=== PATIENT | female | born 1930 | race Caucasian/White ===

== ENCOUNTER 2016-07-24 17:05 | Emergency (ER) | payer MEDICARE ==
[~2016-07-24] VITALS: Ht 149.9 cm; Wt 62.0 kg
[~2016-07-24 17:05] MED LIST: ADVA100A INH; ALBU.5I INH; ALBU8I INH; ALLO300 PO; ASPI81TA82 PO; BRIM0.2S EACH EYE; CARD120T4 PO; CHOLTAB6 PO; CLON.1 PO; FLON0.053; IPRA0.02 INH; LORTA5 PO; METO50TA PO; OMEG12002 PO; PRIN5TAB PO; RIVA10 PO; TRAV0.00 BOTH EYES; VITA10002 PO
[2016-07-24 17:15] VITALS: O2SAT 94
[2016-07-24 17:25] VITALS: BP 153/85; PULSE 93; RESP 24; TEMP 97.7; O2SAT 95
--- NOTE | 2016-07-24 17:27 | PD ---
HPI Chief Complaint: shortness of breath Time Seen by Provider: 17:23 Travel History International Travel<30 days: No Contact w/Intl Traveler<30days: No Traveled to known affect area: No History of Present Illness HPI 86-year-old female came to the emergency room brought by EMS with history of shortness of breath. The tinsmith helper called 911 since patient has been experiencing some chest tightness today. Her primary care office was called and they asked her to bring to the emergency room. Her daughter is here was giving additional history. As per the daughter patient has had shortness of breath for the past week but this morning she woke up saying that her chest was feeling tight. Patient has history of COPD and atrial fibrillation. She does not require oxygen at home. Patient is awake and does not appear to be in severe distress. She is hard of hearing however. Vital signs were within acceptable limit. PFSH Past Medical History Narrative Medical List of her past medical, surgical, social and family history was reviewed from the nursing note. Hx Anticoagulant Therapy: Yes (81 MG ASPIRIN, DAILY) Arthritis: Yes Asthma: No Atrial Fibrillation: Yes Autoimmune Disease: No Anxiety: Yes Depression: Yes Heart Rhythm Problems: Yes (AFIB) Cancer: No Cardiovascular Problems: Yes (HTN, A-FIB) High Cholesterol: No Chest Pain: No Congestive Heart Failure: No COPD: Yes Diabetes: No Diminished Hearing: Yes ([place]; HEARING AID LEFT AID, RIGHT EAR DEAF) Endocrine: No Gastrointestinal Disorders: No Glaucoma: Yes (BILATERAL) Genitourinary: Yes (NEPHROLITHIASIS) Hepatitis: No Hiatal Hernia: No Hypertension: Yes Immune Disorder: No Kidney Stones: Yes Musculoskeletal: No Neurologic: No Psychiatric: Yes (ANXIETY,DEPRESSION,FORGETFULNESS) Reproductive: No Respiratory: Yes (HX RIGHT CHEST SPONTANEOUS PNEUMOTHORAX) Immunizations Current: No Sleep Apnea: No Thyroid Disease: No Menopausal: Yes : 11 Para: 2 Miscarriage: 9 Past Surgical History Abdominal Surgery: No AICD: No Appendectomy: No Arteriovenous Shunt: No Cardiac Surgery: No Cholecystectomy: No Ear Surgery: No Endocrine Surgery: No Eye Surgery: No Genitourinary Surgery: Yes (CYSTOSCOPY) Gynecologic Surgery: No Hysterectomy: No Insulin Pump: No Joint Replacement: No Oral Surgery: No Pacemaker: No Thoracic Surgery: No Tonsillectomy: Yes Other Surgery: Yes (LEFT BREAST BIOPSY) Social History Alcohol Use: Yes (2 COCKTAILS BEFORE DINNER EACH DAY) Tobacco Use: No (QUIT IN 1983) Substance Use: No Allergies-Medications (Allergen,Severity, Reaction): Coded Allergies: Bactrim (Verified Allergy, Severe, UNKNOWN, 07/24/16) Percocet (Verified Allergy, Intermediate, hypotension, 07/24/16) Cipro (Verified Allergy, Mild, ALMOST PASSED OUT, 07/24/16) Levaquin (Verified Allergy, Mild, ALMOST PASSED OUT, 07/24/16) Doxycycline (Verified Adverse Reaction, Severe, Nausea/Vomiting, 07/24/16) Comments List of her allergies reviewed from the nursing note. Reported Meds & Prescriptions Reported Meds & Active Scripts Active Macrobid (Nitrofurantoin Monoh/Nitrofur Macro) 100 Mg Cap 100 Mg PO BID 7 Days Prednisone 20 Mg Tab 20 Mg PO BID 5 Days Reported Aricept (Donepezil) 5 Mg Tab 5 Mg PO HS Macrobid (Nitrofurantoin Monoh/Nitrofur Macro) 100 Mg Cap 100 Mg PO HS K-Tab (Potassium Chloride) 10 Meq Tab 10 Meq PO DAILY Lasix (Furosemide) 20 Mg Tab 20 Mg PO DAILY Namenda (Memantine) 5 Mg Tab 5 Mg PO DAILY Brimonidine Opth Drops (Brimonidine Tartrate) 0.2% Soln 1 Drop EACH EYE BID Metoprolol Tartrate 50 Mg Tab 50 Mg PO BID Ipratropium Neb (Ipratropium [place]) 0.5 Mg/2.5 Ml Amp 0.5 Mg NEB Q6HR NEB Advair Diskus Inh (Fluticasone-Salmeterol Inh) 100-50 Mcg/Blist Aer 1 Puff INH BID Rinse mouth after use. Flonase Nasal [place] (Fluticasone Nasal [place]) 50 Mcg/Act [place] 50 Mcg EACH NARE DAILY Diltiazem (Diltiazem HCl) 120 Mg Tab 120 Mg PO DAILY Aspirin EC (Aspirin) 81 Mg Tabdr 81 Mg PO DAILY Allopurinol 300 Mg Tab 300 Mg PO DAILY Albuterol Neb (Albuterol Sulfate) 2.5 Mg/0.5 Ml Neb 2.5 Mg NEB Q6HR NEB Note: The Albuterol Sulfate Inhalation Solution is concentrated and must be diluted. Read complete instructions carefully before using. Proair Hfa 8.5 GM Inh (Albuterol Sulfate) 90 Mcg/Act Aer 2 Puff INH Q4-6H PRN 108 mcg/actuation Narrative Medication List of her home medications reviewed from the nursing note. Review of Systems Except as stated in HPI: all other systems reviewed are Neg Physical Exam Narrative GENERAL: Awake, alert, elderly, mild distress SKIN: Focused skin assessment warm/dry. Hyperpigmented skin HEAD: Atraumatic. Normocephalic. EYES: Pupils equal and round. No scleral icterus. No injection or drainage. ENT: No nasal bleeding or discharge. Mucous membranes pink and moist. NECK: Trachea midline. No JVD. CARDIOVASCULAR: Irregularly irregular rate and rhythm. No murmur appreciated. RESPIRATORY: No accessory muscle use. Prolonged expiration with end expiratory wheeze GASTROINTESTINAL: Abdomen soft, non-tender, nondistended. Hepatic and splenic margins not palpable. MUSCULOSKELETAL: No obvious deformities. No clubbing. No cyanosis. 1+ bilateral pedal edema. NEUROLOGICAL: Awake and alert. No obvious cranial nerve deficits. Motor grossly within normal limits. Normal speech. PSYCHIATRIC: Appropriate mood and affect; insight and judgment normal. Data Data Last Documented VS Vital Signs Date Time Temp Pulse Resp B/P Pulse Ox O2 Delivery O2 Flow Rate FiO2 07/24/16 18:48 97.7 87 22 151/89 97 Room Air Orders Complete Blood Count With Diff (07/24/16 17:37) Basic Metabolic Panel (Bmp) (07/24/16 17:37) B-Type Natriuretic Peptide (07/24/16 17:37) Prothrombin Time / Inr (Pt) (07/24/16 17:37) Magnesium (Mg) (07/24/16 17:37) Ckmb (Isoenzyme) Profile (07/24/16 17:37) Troponin I (07/24/16 17:37) Urinalysis - C+S If Indicated (07/24/16 17:37) Blood Culture (07/24/16 17:37) Iv Access Insert/Monitor (07/24/16 17:37) Ecg Monitoring (07/24/16 17:37) Oximetry (07/24/16 17:37) Oxygen Administration (07/24/16 17:37) Chest, Single Ap (07/24/16 17:37) Sodium Chloride 0.9% Flush (Ns Flush) (07/24/16 17:45) Furosemide Inj (Lasix Inj) (07/24/16 17:45) Methylprednisolone So Succ Inj (Solumedr (07/24/16 17:45) Albuterol-Ipratropium Neb (Duoneb Neb) (07/24/16 17:45) CKMB (07/24/16 17:15) CKMB% (07/24/16 17:15) Urine Culture (07/24/16 18:22) Nitrofurantoin Monohyd Macrocr (Macrobid (07/24/16 19:00) Electrocardiogram (07/24/16 17:20) Labs Laboratory Tests Test 07/24/16 07/24/16 17:15 18:22 White Blood Count 7.5 TH/MM3 Red Blood Count 4.45 MIL/MM3 Hemoglobin 14.7 GM/DL Hematocrit 43.5 % Mean Corpuscular Volume 97.6 FL Mean Corpuscular Hemoglobin 33.0 PG Mean Corpuscular Hemoglobin 33.8 % Concent Red Cell Distribution Width 14.8 % Platelet Count 221 TH/MM3 Mean Platelet Volume 8.5 FL Neutrophils (%) (Auto) 61.1 % Lymphocytes (%) (Auto) 24.6 % Monocytes (%) (Auto) 8.0 % Eosinophils (%) (Auto) 6.0 % Basophils (%) (Auto) 0.3 % Neutrophils # (Auto) 4.5 TH/MM3 Lymphocytes # (Auto) 1.9 TH/MM3 Monocytes # (Auto) 0.6 TH/MM3 Eosinophils # (Auto) 0.5 TH/MM3 Basophils # (Auto) 0.0 TH/MM3 CBC Comment DIFF FINAL Differential Comment Prothrombin Time 10.6 SEC Prothromb Time International 1.0 RATIO Ratio Sodium Level 141 MEQ/L Potassium Level 4.1 MEQ/L Chloride Level 104 MEQ/L Carbon Dioxide Level 29.2 MEQ/L Anion Gap 8 MEQ/L Blood Urea Nitrogen 22 MG/DL Creatinine 0.89 MG/DL Estimat Glomerular Filtration 60 ML/MIN Rate Random Glucose 88 MG/DL Calcium Level 9.0 MG/DL Magnesium Level 2.0 MG/DL Total Creatine Kinase 137 U/L Creatine Kinase MB 6.3 NG/ML Troponin I LESS THAN 0.02 NG/ML B-Type Natriuretic Peptide 172 PG/ML Urine Color YELLOW Urine Turbidity CLEAR Urine pH 6.5 Urine Specific [place] 1.010 Urine Protein NEG mg/dL Urine Glucose (UA) NEG mg/dL Urine Ketones NEG mg/dL Urine Occult Blood NEG Urine Nitrite NEG Urine Bilirubin NEG Urine Leukocyte Esterase NEG Urine RBC 0-2 /hpf Urine WBC 3-5 /hpf Urine Squamous Epithelial 0-5 /hpf Cells Urine Bacteria MOD /hpf Microscopic Urinalysis Comment CULTURE INDICATED MDM Medical Decision Making Medical Screen Exam Complete: Yes Emergency Medical Condition: Yes Medical Record Reviewed: Yes Interpretation(s) Twelve-lead EKG was reviewed by me. Atrial fibrillation, normal axis, questionable old anterior [place]. Heart rate of 87 bpm. Differential Diagnosis COPD exacerbation, CHF, pneumonia Narrative Course 6:48 PM patient was given 2 DuoNeb treatments and IV Solu-Medrol. She she was also initially given IV Lasix not knowing whether there could be any congestive heart failure component to her shortness of breath. However blood test results of back and her BNP and troponin has been negative. Patient has had these symptoms since the morning and given the normal cardiac enzymes and chest x-ray not suggestive of fluid overload I am comfortable discharging her home. She is maintaining oxygen saturation at 96-97% on room air. Daughter is comfortable taking her home. They will go home with instructions. Procedures EKG Prior to Arrival: No Diagnosis Primary Impression: COPD exacerbation Additional Impressions: Shortness of breath UTI (urinary tract infection) Qualified Code: N39.0 - Urinary tract infection without hematuria, site unspecified Referrals: Trenton Rajan MD 1 day Additional Instructions: Please follow-up with your bread icer and primary care doctor. With your bread icer tomorrow. Use your inhaler 2 puffs every 6 hours till your been seen again. Take the medication as per the prescription direction. Return to the ER if condition worsens or any other new concerns. Med/Other Pt SpecificInfo: Prescription(s) given Scripts Nitrofurantoin Monohydrate Macrocrystals (Macrobid)100 Mg [id number] Mg PO BID 7 Days Ref 0 Prov:Albina Saleh MD 07/24/16 Prednisone 20 Mg Tab20 Mg PO BID 5 Days Ref 0 Prov:Albina Saleh MD 07/24/16 Disposition: 01 DISCHARGE HOME Condition: Stable Albina Saleh MD July 24, 2016 17:27
[2016-07-24] MEDS ORDERED: NAME5TAB2 PO (17:43)
[2016-07-24] MEDS ORDERED: DILT120T PO (17:43)
[2016-07-24] MEDS ORDERED: ALBUAER3 INH (17:43)
[2016-07-24] MEDS ORDERED: BRIM0.2S4 EACH EYE (17:43)
[2016-07-24] MEDS ORDERED: ALBU.5I NEB (17:43)
[2016-07-24] MEDS ORDERED: MACR100C2 PO ×2 (17:43→18:58)
[2016-07-24] MEDS ORDERED: ASPI81TA11 PO (17:43)
[2016-07-24] MEDS ORDERED: ADVA100A INH (17:43)
[2016-07-24] MEDS ORDERED: IPRA0.02 NEB (17:43)
[2016-07-24] MEDS ORDERED: ALLO300T2 PO (17:43)
[2016-07-24] MEDS ORDERED: K-TA10TA PO (17:43)
[2016-07-24] MEDS ORDERED: METO50TA PO (17:43)
[2016-07-24] MEDS ORDERED: FLUT1SPR5 EACH NARE (17:43)
[2016-07-24] MEDS ORDERED: FURO1TAB62 PO (17:43)
[2016-07-24] MEDS ORDERED: SODIUM CHLORIDE 0.9% FLUSH 10 ML FLUSH IVF PRN (17:45)
[2016-07-24] MEDS ORDERED: methylPREDNISolone SOD SUCC 125 MG/2 ML VIAL IVP ONE (17:45)
[2016-07-24] MEDS ORDERED: FUROSEMIDE 40 MG/4 ML VIAL IVP ONE (17:45)
[2016-07-24] MEDS: RESP: ALBUTEROL 2.5 MG/IPRATROPIUM 0.5 MG NEB (SCH) INH ×2 (17:53→17:54)
[2016-07-24 18:01] LABS: AUTOMATED NEUTROPHIL # 4.5 TH/MM3 (1.8-7.7); BASOPHIL % 0.3 % (0.0-2.0); EOSINOPHIL # 0.5 TH/MM3 (0-0.4); HEMATOCRIT 43.5 % (35.0-46.0); HEMO FLAGS DIFF FINAL; LYMPH % 24.6 % (9.0-44.0); LYMPHOCYTE # 1.9 TH/MM3 (1.0-4.8); MEAN CELL VOLUME 97.6 FL (80.0-100.0); MEAN CORPUSCULAR HGB CONC 33.8 % (32.0-36.0); NEUT % 61.1 % (16.0-70.0); PLATELET COUNT 221 TH/MM3 (150-450); RED BLOOD COUNT 4.45 MIL/MM3 (4.00-5.30); RED CELL DISTRIBUTION WIDTH 14.8 % (11.6-17.2); WHITE BLOOD COUNT 7.5 TH/MM3 (4.0-11.0)
[2016-07-24 18:09] LABS: CHLORIDE 104 MEQ/L (98-107); POTASSIUM 4.1 MEQ/L (3.5-5.1); SODIUM (NA) 141 MEQ/L (136-145)
[2016-07-24 18:12] LABS: ANION GAP 8 MEQ/L (5-15); BICARBONATE 29.2 MEQ/L (21.0-32.0)
[2016-07-24 18:13] LABS: BLOOD UREA NITROGEN 22 MG/DL (7-18)
[2016-07-24 18:16] LABS: GLOMERULAR FILTRATION RATE 60 ML/MIN (>89)
[2016-07-24 18:19] LABS: CREATINE KINASE 137 U/L (26-192)
[2016-07-24 18:29] VITALS: BP 162/83; PULSE 92; RESP 22; O2SAT 96
[2016-07-24 18:29] LABS: PROTHROMBIN TIME - PATIENT 10.6 SEC (9.8-11.6)
[2016-07-24 18:29] LABS: BLOOD, URINE NEG (NEG); GLUCOSE,URINE NEG (NEG); KETONE, URINE NEG (NEG); NITRITE,URINE NEG (NEG); PH, URINE 6.5 (5.0-8.5)
--- NOTE | 2016-07-24 18:30 | RADHPO ---
EXAM DATE/TIME: 07/24/2016 18:12 [facility] COMPARISON: CHEST SINGLE AP, June 13, 2015, 23:31. INDICATIONS : Patient has been short of breath since Thursday. Today her complaint is chest tightne ss. MEDICAL HISTORY : None. SURGICAL HISTORY : None. ENCOUNTER: Initial ACUITY: 1 week PAIN SCORE: 0/10 LOCATION: Bilateral chest FINDINGS: Minimal bibasilar parenchymal changes are noted worse on the right than the left. Heart and pulmonary vascularity are normal. Portions of the bony skeleton visualized are unremarkable. CONCLUSION: Minimal bibasilar parenchymal changes. Vincenzo Jaeger MD FACR on July 24, 2016 at 18:22 Board Certified Radiologist. This report was verified electronically.
[2016-07-24 18:31] LABS: CKMB 6.3 NG/ML (0.5-3.6)
[2016-07-24 18:35] LABS: URINE COLOR YELLOW (YELLW/STRAW)
[2016-07-24 18:36] LABS: BACTERIA, URINE MOD /hpf; COMMENT (UR) CULTURE INDICATED; CULTURE IF INDICATED CULTURE INDICATED; RBC, URINE 0-2 /hpf (0-3); SQUAMOUS EPITHELIAL CELL URINE 0-5 /hpf (0-5)
[2016-07-24] MEDS ORDERED: ARIC5TAB PO (18:36)
[2016-07-24 18:48] VITALS: BP 151/89; PULSE 87; RESP 22; TEMP 97.7; O2SAT 97
[2016-07-24] MEDS ORDERED: PRED20 PO (18:50)
[2016-07-24] MEDS ORDERED: NITROFURANTOIN MONOHYD MACROCR 100 MG CAP PO ONE (19:00)
--- NOTE | 2016-07-25 21:39 | EKG ---
Date Performed: 07/24/2016 Time Performed: 17:20:26 PTAGE: 86 years EKG: Atrial flutter with 3:1 A-V block Possible anteroseptal infarct - age undetermined Low QRS voltages in limb leads Abnormal ECG PREVIOUS TRACING : 06/15/2015 08.49 Compared to the previous tracing Ventricular response to AF LUTTER is controlled DOCTOR: Trent Arriaga Interpretating Date/Time 07/25/2016 21:39:20
== END 2016-07-24 19:15 | disposition home or self-care (01) ==
LOC: PHED 17:05
DX: J44.1 Chronic obstructive pulmonary disease with (acute) exacerbation (principal); N39.0 Urinary tract infection, site not specified; B96.89 Other specified bacterial agents as the cause of diseases classified elsewhere; R94.31 Abnormal electrocardiogram [ECG] [EKG]; I48.91 Unspecified atrial fibrillation; I10 Essential (primary) hypertension
CPT/HCPCS: 71010; 80048; 81001; 82550; 82552; 83735; 83880; 84484; 85025; 85610; 87040; 87086; 93005; 94640; 94664; 96374; 96375; 99285; J1940; J2930

== ENCOUNTER 2017-03-18 14:34 | Emergency (ER) | payer MEDICARE ==
[~2017-03-18 14:34] MED LIST changes: -ALBU.5I INH; +ALBU.5I NEB; -ALBU8I INH; +ALBUAER3 INH; -ALLO300 PO; +ALLO300T2 PO; +ARIC5TAB PO; +ASPI81TA23 PO; -ASPI81TA82 PO; -BRIM0.2S EACH EYE; +BRIM0.2S4 EACH EYE; -CARD120T4 PO; -CHOLTAB6 PO; -CLON.1 PO; +DILT120T PO; -FLON0.053; +FLUT1SPR5 EACH NARE; +FURO1TAB62 PO; -IPRA0.02 INH; +IPRA0.02 NEB; +K-TA10TA PO; -LORTA5 PO; +MACR100C2 PO; +NAME5TAB2 PO; -OMEG12002 PO; +PRED20 PO; -PRIN5TAB PO; -RIVA10 PO; -TRAV0.00 BOTH EYES; -VITA10002 PO
[2017-03-18 15:42] VITALS: BP 165/91; PULSE 93; RESP 22; TEMP 98; O2SAT 94
[2017-03-18 15:47] VITALS: O2SAT 94
[2017-03-18] MEDS ORDERED: SODIUM CHLORIDE 0.9% FLUSH 10 ML FLUSH IVF PRN (16:00)
--- NOTE | 2017-03-18 16:05 | PD ---
HPI Chief Complaint: Chest Pain Time Seen by Provider: 15:39 Travel History International Travel<30 days: No Contact w/Intl Traveler<30days: No Traveled to known affect area: No History of Present Illness HPI This patient complains of chest pain. She had central sternal pain she describes as a aching and a heaviness. It is resolved at this point. No alleviating factors. No exacerbating factors. It was nonexertional. Duration was 4 hours. Started at 10 AM and resolved around 2 PM. She has history of atrial fibrillation and takes aspirin therapy only. No history of stenting or coronary blockage. No recent stress testing. PFSH Past Medical History Hx Anticoagulant Therapy: Yes (81 MG ASPIRIN, DAILY) Arthritis: Yes Asthma: No Atrial Fibrillation: Yes Autoimmune Disease: No Anxiety: Yes Depression: Yes Heart Rhythm Problems: Yes (AFIB) Cancer: No Cardiovascular Problems: Yes High Cholesterol: No Chest Pain: No Congestive Heart Failure: No COPD: Yes Diabetes: No Diminished Hearing: Yes ([place]; HEARING AID LEFT AID, RIGHT EAR DEAF) Endocrine: No Gastrointestinal Disorders: No Glaucoma: Yes (BILATERAL) Genitourinary: Yes (NEPHROLITHIASIS) Hepatitis: No Hiatal Hernia: No Hypertension: Yes Immune Disorder: No Kidney Stones: Yes Musculoskeletal: No Neurologic: No Psychiatric: Yes (ANXIETY,DEPRESSION,FORGETFULNESS) Reproductive: No Respiratory: Yes (HX RIGHT CHEST SPONTANEOUS PNEUMOTHORAX) Immunizations Current: Yes Sleep Apnea: No Thyroid Disease: No Menopausal: Yes : 11 Para: 2 Miscarriage: 9 Past Surgical History Abdominal Surgery: No AICD: No Appendectomy: No Arteriovenous Shunt: No Cardiac Surgery: No Cholecystectomy: No Ear Surgery: No Endocrine Surgery: No Eye Surgery: No Genitourinary Surgery: Yes (CYSTOSCOPY) Gynecologic Surgery: No Hysterectomy: No Insulin Pump: No Joint Replacement: No Oral Surgery: No Pacemaker: No Thoracic Surgery: No Tonsillectomy: Yes Other Surgery: Yes (LEFT BREAST BIOPSY) Social History Alcohol Use: Yes (2 COCKTAILS BEFORE DINNER EACH DAY) Tobacco Use: No (QUIT IN 1983) Substance Use: No Allergies-Medications (Allergen,Severity, Reaction): Coded Allergies: sulfamethoxazole (Unverified Allergy, Severe, UNKNOWN, 10/21/16) trimethoprim (Unverified Allergy, Severe, UNKNOWN, 10/21/16) acetaminophen (Unverified Allergy, Intermediate, hypotension, 10/21/16) oxycodone (Unverified Allergy, Intermediate, hypotension, 10/21/16) ciprofloxacin (Unverified Allergy, Mild, ALMOST PASSED OUT, 10/21/16) levofloxacin (Unverified Allergy, Mild, ALMOST PASSED OUT, 10/21/16) doxycycline (Unverified Adverse Reaction, Severe, Nausea/Vomiting, 10/21/16 ) Reported Meds & Prescriptions Reported Meds & Active Scripts Active Reported Meloxicam 7.5 Mg Tab 7.5 Mg PO DAILY Ipratropium Neb (Ipratropium [place]) 0.5 Mg/2.5 Ml Amp 0.5 Mg NEB Q12HR NEB Ventolin Hfa 18 GM Inh (Albuterol Sulfate) 90 Mcg/Act Aer 2 Puff INH Q4-6H PRN Donepezil 10 Mg Tab 10 Mg PO HS Mirtazapine 15 Mg Tab 15 Mg PO HS [place] Xt (Diltiazem ER 24 HR) 120 Mg Caper 180 Mg PO DAILY Macrobid (Nitrofurantoin Monoh/Nitrofur Macro) 100 Mg Cap 100 Mg PO HS K-Tab (Potassium Chloride) 10 Meq Tab 10 Meq PO DAILY Lasix (Furosemide) 20 Mg Tab 20 Mg PO DAILY Namenda (Memantine) 5 Mg Tab 5 Mg PO DAILY Metoprolol Tartrate 50 Mg Tab 50 Mg PO DAILY Aspirin EC (Aspirin) 81 Mg Tabdr 81 Mg PO DAILY Allopurinol 300 Mg Tab 300 Mg PO DAILY Albuterol Neb (Albuterol Sulfate) 2.5 Mg/0.5 Ml Neb 2.5 Mg NEB Q6HR NEB Note: The Albuterol Sulfate Inhalation Solution is concentrated and must be diluted. Read complete instructions carefully before using. Review of Systems General / Constitutional: No: Fever Eyes: No: Visual changes HENT: No: Headaches Cardiovascular: Positive: Chest Pain or Discomfort, Irregular Rhythm Respiratory: No: Shortness of Breath Gastrointestinal: No: Abdominal Pain Genitourinary: No: Dysuria Musculoskeletal: No: Pain Skin: No Rash Neurologic: No: Weakness Psychiatric: No: Depression Endocrine: No: Polydipsia Hematologic/Lymphatic: No: Easy Bruising Physical Exam Narrative GENERAL: Thin elderly well-developed patient in no apparent distress. SKIN: Focused skin assessment reveals no rash and nodules. Skin is Warm and dry. Very tanned and dark skin HEAD: Atraumatic. Normocephalic. EYES: Pupils equal and round. No scleral icterus. No injection or drainage. ENT: No nasal bleeding or discharge. Mucous membranes pink and moist. NECK: Trachea midline. No JVD. CARDIOVASCULAR: Irregularly irregular rhythm. No murmur appreciated. RESPIRATORY: No accessory muscle use. Clear to auscultation. Breath sounds equal bilaterally. GASTROINTESTINAL: Abdomen soft, non-tender, nondistended. Hepatic and splenic margins not palpable. MUSCULOSKELETAL: No obvious deformities. No clubbing. No cyanosis. No edema. NEUROLOGICAL: Awake and alert. No obvious cranial nerve deficits. Motor grossly within normal limits. Normal speech. PSYCHIATRIC: Appropriate mood and affect; insight and judgment normal. Data Data Last Documented VS Vital Signs Date Time Temp Pulse Resp B/P (MAP) Pulse Ox O2 Delivery O2 Flow Rate FiO2 03/18/17 17:55 03/18/17 17:29 97.7 90 20 94 Room Air Orders Orders Electrocardiogram (03/18/17 15:56) Basic Metabolic Panel (Bmp) (03/18/17 15:56) Ckmb (Isoenzyme) Profile (03/18/17 15:56) Complete Blood Count With Diff (03/18/17 15:56) Magnesium (Mg) (03/18/17 15:56) Prothrombin Time / Inr (Pt) (03/18/17 15:56) Act Partial Throm Time (Ptt) (03/18/17 15:56) Troponin I (03/18/17 15:56) Chest, Single Ap (03/18/17 15:56) Ecg Monitoring (03/18/17 15:56) Iv Access Insert/Monitor (03/18/17 15:56) Oximetry (03/18/17 15:56) Sodium Chloride 0.9% Flush (Ns Flush) (03/18/17 16:00) Labs Laboratory Tests Test 03/18/17 15:30 White Blood Count 8.7 TH/MM3 Red Blood Count 4.70 MIL/MM3 Hemoglobin 14.9 GM/DL Hematocrit 46.4 % Mean Corpuscular Volume 98.7 FL Mean Corpuscular Hemoglobin 31.8 PG Mean Corpuscular Hemoglobin Concent 32.2 % Red Cell Distribution Width 15.6 % Platelet Count 191 TH/MM3 Mean Platelet Volume 9.0 FL Neutrophils (%) (Auto) 73.0 % Lymphocytes (%) (Auto) 15.2 % Monocytes (%) (Auto) 8.2 % Eosinophils (%) (Auto) 1.7 % Basophils (%) (Auto) 1.9 % Neutrophils # (Auto) 6.4 TH/MM3 Lymphocytes # (Auto) 1.3 TH/MM3 Monocytes # (Auto) 0.7 TH/MM3 Eosinophils # (Auto) 0.1 TH/MM3 Basophils # (Auto) 0.2 TH/MM3 CBC Comment DIFF FINAL Differential Comment Prothrombin Time 10.4 SEC Prothromb Time International Ratio 1.0 RATIO Activated Partial Thromboplast Time 23.9 SEC Blood Urea Nitrogen 29 MG/DL Creatinine 1.20 MG/DL Random Glucose 103 MG/DL Calcium Level 8.9 MG/DL Magnesium Level 1.9 MG/DL Sodium Level 139 MEQ/L Potassium Level 4.2 MEQ/L Chloride Level 101 MEQ/L Carbon Dioxide Level 31.7 MEQ/L Anion Gap 6 MEQ/L Estimat Glomerular Filtration Rate 43 ML/MIN Total Creatine Kinase 58 U/L Troponin I LESS THAN 0.02 NG/ML MDM Medical Decision Making Medical Screen Exam Complete: Yes Emergency Medical Condition: Yes Medical Record Reviewed: Yes Differential Diagnosis Differential diagnosis includes [place], angina, pericarditis, pleurisy, GERD, anxiety. Narrative Course I have reviewed the patient's electronic medical record. IV placed I reviewed the EKG which shows A. fib I reviewed the chest x-ray which is negative Extended cardiac monitoring shows A. fib but the rate is not excessive CBC is normal Metabolic profile is normal CK is negative Troponin is negative Coagulation studies are normal She had aspirin prior to arrival Had a discussion with family members. Recommended telemetry hospitalization given her age and chest pain. Family does not want her to stay. She is demented and does not do well in the hospital. She is very confused and agitated. Evens Hawkins MD Mar 18, 2017 16:05
[2017-03-18 16:16] LABS: AUTOMATED NEUTROPHIL # 6.4 TH/MM3 (1.8-7.7); BASOPHIL # 0.2 TH/MM3 (0-0.2); BASOPHIL % 1.9 % (0.0-2.0); EOSINOPHIL # 0.1 TH/MM3 (0-0.4); EOSINOPHIL % 1.7 % (0.0-4.0); HEMATOCRIT 46.4 % (35.0-46.0); HEMOGLOBIN 14.9 GM/DL (11.6-15.3); LYMPH % 15.2 % (9.0-44.0); LYMPHOCYTE # 1.3 TH/MM3 (1.0-4.8); MEAN CELL VOLUME 98.7 FL (80.0-100.0); MEAN CORPUSCULAR HEMOGLOBIN 31.8 PG (27.0-34.0); MEAN CORPUSCULAR HGB CONC 32.2 % (32.0-36.0); MONO % 8.2 % (0.0-8.0); MONOCYTE # 0.7 TH/MM3 (0-0.9); PLATELET COUNT 191 TH/MM3 (150-450); RED CELL DISTRIBUTION WIDTH 15.6 % (11.6-17.2); WHITE BLOOD COUNT 8.7 TH/MM3 (4.0-11.0)
[2017-03-18 16:24] LABS: CHLORIDE 101 MEQ/L (98-107); SODIUM (NA) 139 MEQ/L (136-145)
[2017-03-18 16:26] LABS: BICARBONATE 31.7 MEQ/L (21.0-32.0); CALCIUM 8.9 MG/DL (8.5-10.1)
[2017-03-18 16:27] LABS: BLOOD UREA NITROGEN 29 MG/DL (7-18); GLUCOSE,RANDOM 103 MG/DL (74-106); MAGNESIUM 1.9 MG/DL (1.5-2.5)
[2017-03-18 16:28] LABS: PROTHROMBIN TIME - PATIENT 10.4 SEC (9.8-11.6)
[2017-03-18 16:30] LABS: GLOMERULAR FILTRATION RATE 43 ML/MIN (>89)
--- NOTE | 2017-03-18 16:31 | RADRPT ---
EXAM DATE/TIME: 03/18/2017 16:15 [facility] COMPARISON: CHEST SINGLE AP, July 24, 2016, 18:12. INDICATIONS : Short of breath. MEDICAL HISTORY : None. SURGICAL HISTORY : None. ENCOUNTER: Initial ACUITY: 1 day PAIN SCORE: 0/10 LOCATION: Bilateral chest FINDINGS: A single view of the chest demonstrates left basilar subsegmental atelectasis without evidence of mas s, infiltrate or effusion. The cardiomediastinal contours are unremarkable. Osseous structures are intact. CONCLUSION: Left basilar subsegmental atelectasis. Rikki Ortega MD on March 18, 2017 at 16:28 Board Certified Radiologist. This report was verified electronically.
[2017-03-18 16:35] LABS: TROPONIN I LESS THAN 0.02 NG/ML (0.02-0.05)
[2017-03-18] MEDS ORDERED: VENTAER INH (17:17)
[2017-03-18] MEDS ORDERED: MIRTA15 PO (17:17)
[2017-03-18] MEDS ORDERED: MELO7.5T27 PO (17:17)
[2017-03-18] MEDS ORDERED: CART120C PO (17:17)
[2017-03-18] MEDS ORDERED: IPRA0.02 NEB (17:17)
[2017-03-18] MEDS ORDERED: DONE10TA7 PO (17:17)
[2017-03-18 17:29] VITALS: BP 147/70; PULSE 90; RESP 20; TEMP 97.7; O2SAT 94
--- NOTE | 2017-03-19 19:10 | EKG ---
Date Performed: 03/18/2017 Time Performed: 15:15:23 PTAGE: 86 years EKG: ATRIAL FLUTTER WITH 4-1 CONDUCTION ABNORMAL RHYTHM ECG PREVIOUS TRACING : 07/24/2016 17.20 SINCE PRIOR TRACING NO SIGNIFICANT CHANGE. DOCTOR: Linda Cuenca Interpretating Date/Time 03/19/2017 19:09:49
--- NOTE | 2017-03-19 21:10 | EKG ---
Date Performed: 03/18/2017 Time Performed: 16:05:51 PTAGE: 86 years EKG: ATRIAL FLUTTER/TACHYCARDIA LOW QRS VOLTAGE IN EXTREMITY LEADS ABNORMAL RHYTHM ECG PREVIOUS TRACING : 03/18/2017 15.15 SINCE PRIOR TRACING NO SIGNIFICANT CHANGE NOTED DOCTOR: Linda Cuenca Interpretating Date/Time 03/19/2017 21:09:45
== END 2017-03-18 18:09 | disposition left against medical advice (07) ==
LOC: PHED 14:34
DX: R07.9 Chest pain, unspecified (principal); I48.91 Unspecified atrial fibrillation; I10 Essential (primary) hypertension; J44.9 Chronic obstructive pulmonary disease, unspecified; Z79.82 Long term (current) use of aspirin; Z87.891 Personal history of nicotine dependence
CPT/HCPCS: 71045; 80048; 82550; 83735; 84484; 85025; 85610; 85730; 93005

== ENCOUNTER 2017-10-16 08:12 | Observation (INO) ==
[2017-10-16] MEDS ORDERED: MethylPREDNISolone Sod Succinate Inj 125 MG/2 ML Vial IV.PUSH ONE (08:23)
--- NOTE | 2017-10-16 08:36 | ED ---
HPI General Chief Complaint: Chest Pain Stated Complaint: Chest Pain Time Seen by Provider: 10/16/17 08:23 Source: patient and family Mode of arrival: ambulatory History of Present Illness HPI narrative: Patient is an 87-year-old female with history of COPD, atrial fibrillation, hypertension, presents the emergency room with complaints of chest pain and shortness of breath. As per patient's daughter, patient has history of COPD, she is non-oxygen dependent. Patient does follow-up with Dr. Gonzalez - her mid level practitioner who recommended nebulizer treatments which patient has not been compliant with. Reports that at baseline, patient usually has right-sided chest pain with her symptoms. Daughter was concerned as this morning, patient woke up and began to have chest pain to her left chest. Patient reports that chest pain is located to her left chest, chest pain feels like a "pressure" to her chest. Patient reports shortness of breath as well as diaphoresis with her symptoms. Patient does have history of atrial fibrillation , she does follow-up with Dr. Azar in the office - daughter reports that patient is supposed to have a Watchman procedure but no one will touch her with her "bad lungs." Complete Quality Measures for STEMI Alert Patients Related Data Home Medications Medication Instructions Recorded Confirmed albuterol sulfate 1.25 mg INHALATION QID 10/16/17 10/16/17 albuterol sulfate [Ventolin HFA] 2 puff INHALATION Q4-6H PRN 10/16/17 10/16/17 allopurinol 100 mg PO DAILY 10/16/17 10/16/17 aspirin [Aspir-81] 81 mg PO DAILY 10/16/17 10/16/17 cholecalciferol (vitamin D3) 1,000 unit PO DAILY 10/16/17 10/16/17 [Vitamin D3] cranberry 1,500 mg PO DAILY 10/16/17 10/16/17 diltiazem HCl [DILT-XR] 180 mg PO DAILY 10/16/17 10/16/17 donepezil 10 mg PO DAILY 10/16/17 10/16/17 fluticasone [Flovent HFA] 1 puff INHALATION BID 10/16/17 10/16/17 furosemide 20 mg PO DAILY 10/16/17 10/16/17 lactobacillus combination no.4 3,000 mmu cells PO DAILY 10/16/17 10/16/17 [Probiotic] meloxicam 7.5 mg PO DAILY 10/16/17 10/16/17 memantine 5 mg PO DAILY 10/16/17 10/16/17 metoprolol tartrate 50 mg PO DAILY 10/16/17 10/16/17 mirtazapine 15 mg PO DAILY 10/16/17 10/16/17 nitrofurantoin macrocrystal 100 mg PO DAILY 10/16/17 10/16/17 omega 3-gbt-kde-fish oil [Fish Oil] 1 cap PO DAILY 10/16/17 10/16/17 potassium chloride [K-Tab] 10 meq PO DAILY 10/16/17 10/16/17 umeclidinium-vilanterol [Anoro 1 inh INHALATION Q24H 10/16/17 10/16/17 Ellipta] Allergies Allergy/AdvReac Type Severity Reaction Status Date / Time sulfamethoxazole Allergy Unknown Unknown Verified 10/16/17 08:27 trimethoprim Allergy Unknown Unknown Verified 10/16/17 08:27 acetaminophen AdvReac Severe Hypotension Verified 10/16/17 08:27 ciprofloxacin AdvReac Severe Syncope Verified 10/16/17 08:27 doxycycline AdvReac Severe Nausea/Vomi Verified 10/16/17 08:27 ting levofloxacin AdvReac Severe Syncope Verified 10/16/17 08:27 oxycodone AdvReac Severe Hypotension Verified 10/16/17 08:27 Review of Systems ROS: all other systems reviewed are negative [facility] Medical History Medical History Atrial fibrillation (Acute) Atrial flutter (Acute) COPD (chronic obstructive pulmonary disease) (Acute) Hypertension (Acute) Kidney stones (Acute) Surgical History Surgical History History of hip surgery (Acute) Social History Social History Smoking Status: Former smoker How Often Do You Have a Drink Containing Alcohol: 4 or more times a week Recent Travel in [facility] within the Last 8 Weeks: No Recent Out of Country Travel within the Last 8 Weeks: No Immunization History Tetanus Immunization: Unsure Hx Influenza Vaccine This Season: Yes Exam Narrative Exam Narrative: GENERAL: moderate distress SKIN: Focused skin assessment warm/dry. HEAD: Atraumatic. Normocephalic. EYES: Pupils equal and round. No scleral icterus. No injection or drainage. ENT: No nasal bleeding or discharge. Mucous membranes pink and moist. NECK: Trachea midline. No JVD. CARDIOVASCULAR: irregular rate and rhythm. No murmur appreciated. RESPIRATORY: No accessory muscle use. Decreased breath sounds with expiratory wheezing to lung bases. Breath sounds equal bilaterally. GASTROINTESTINAL: Abdomen soft, non-tender, nondistended. Hepatic and splenic margins not palpable. MUSCULOSKELETAL: No obvious deformities. No clubbing. No cyanosis. No edema. NEUROLOGICAL: Awake and alert. No obvious cranial nerve deficits. Motor grossly within normal limits. Normal speech. PSYCHIATRIC: Appropriate mood and affect; insight and judgment normal. Course Initial Documented Vital Signs Temperature 98.2 F 10/16/17 08:15 Pulse Rate 88 10/16/17 08:15 Respiratory Rate 28 H 10/16/17 08:15 Blood Pressure 154/132 H 10/16/17 08:15 Pulse Oximetry 97 10/16/17 08:15 Last Documented Vital Signs Temperature 98.2 F 10/16/17 08:15 Pulse Rate 105 H 10/16/17 10:05 Respiratory Rate 18 10/16/17 10:05 Blood Pressure 154/105 H 10/16/17 10:05 Pulse Oximetry 97 10/16/17 10:05 Medical Decision Making MDM Narrative Medical decision making narrative: During the course of the patients emergency department visit, the patients history, examination, and differential diagnosis were reviewed with the patient. The patient was placed on a quality assurance monitor chassis with oximetry and frequent blood pressure monitoring. The patient had an IV access obtained and blood work sent for analysis. The patient was initially provided a dose of aspirin 162 mg as well as sublingual nitroglycerin to see if this helps with her chest pain. Patient was also given Solu-Medrol as well as DuoNeb's as she is wheezing and is complaining of shortness of breath. I do believe that her symptoms are likely due to COPD exacerbation Patient had relief of chest pain after 1 sublingual nitroglycerin. Plan to admit for observation in the chest pain unit as her chest pain is different from her normal COPD exacerbations. Her lungs do sound clearer after the neb treatments and I do think that her symptoms are also due to COPD exacerbation. Discussed with patient need to use her neb treatments while at home. Case reviewed with Dr. Vásquez who will observe for chest pain rule out Differential Diagnosis Differential Diagnosis: COPD exacerbation, pneumonia, pneumothorax, A. fib with RVR, arrhythmia, ACS Medical Records Medical records reviewed: Yes I reviewed the patient's medical records. Lab Data Lab results reviewed: Yes I reviewed the patient's lab results. Result diagrams: 10/16/17 08:30 10/16/17 08:30 Lab Results 10/16/17 10/16/17 10/16/17 Range/Units 08:30 08:30 08:30 CBC w Diff Auto diff final WBC 10.9 (4.0-11.0) th/mm3 RBC 4.44 (4.00-5.30) mil/mm3 Hgb 15.6 H (11.6-15.3) gm/dL Hct 45.1 (35.0-46.0) % MCV 101.5 H (80.0-100.0) fL MCH 35.1 H (27.0-34.0) pg MCHC 34.6 (32.0-36.0) % RDW 15.5 (11.6-17.2) % Plt Count 207 (150-450) th/mm3 MPV 8.9 (7.0-11.0) fL Neut % (Auto) 79.4 H (16.0-70.0) % Lymph % (Auto) 12.0 (9.0-44.0) % [place] % (Auto) 7.0 (0.0-8.0) % Eos % (Auto) 1.3 (0.0-4.0) % Baso % (Auto) 0.3 (0.0-2.0) % Neut # (Auto) 8.7 H (1.8-7.7) th/mm3 Lymph # (Auto) 1.3 (1.0-4.8) th/mm3 Ventura # (Auto) 0.8 (0.0-0.9) th/mm3 Eos # (Auto) 0.1 (0.0-0.4) th/mm3 Baso # (Auto) 0.0 (0.0-0.2) th/mm3 WBC Differential . Differential Comment . PT 9.9 (9.8-11.6) sec INR 1.0 Ratio APTT 23.6 L (24.3-30.1) sec Sodium 138 (136-145) meq/L Potassium 4.0 (3.5-5.1) meq/L Chloride 101 (98-107) meq/L Carbon Dioxide 30.3 (21.0-32.0) meq/L Anion Gap 7 (5-15) meq/L BUN 21 H (7-18) mg/dL Creatinine 1.20 H (0.50-1.00) mg/dL Estimated GFR 43 L (>89) mL/min Random Glucose 88 (74-106) mg/dL Calcium 8.9 (8.5-10.1) mg/dL Magnesium 1.9 (1.5-2.5) mg/dL Total Bilirubin 0.9 (0.2-1.0) mg/dL AST 16 (15-37) U/L ALT 16 (10-53) U/L Alkaline Phosphatase 163 H (45-117) U/L Total Creatine Kinase 39 (26-192) U/L Troponin I Less than 0.02 L (0.02-0.05) ng/mL B-Natriuretic Peptide (0-100) pg/mL Total Protein 7.2 (6.4-8.2) g/dL Albumin 3.5 (3.4-5.0) g/dL Lipase 172 (73-393) U/L 10/16/17 Range/Units 08:30 CBC w Diff WBC (4.0-11.0) th/mm3 RBC (4.00-5.30) mil/mm3 Hgb (11.6-15.3) gm/dL Hct (35.0-46.0) % MCV (80.0-100.0) fL MCH (27.0-34.0) pg MCHC (32.0-36.0) % RDW (11.6-17.2) % Plt Count (150-450) th/mm3 MPV (7.0-11.0) fL Neut % (Auto) (16.0-70.0) % Lymph % (Auto) (9.0-44.0) % Ventura % (Auto) (0.0-8.0) % Eos % (Auto) (0.0-4.0) % Baso % (Auto) (0.0-2.0) % Neut # (Auto) (1.8-7.7) th/mm3 Lymph # (Auto) (1.0-4.8) th/mm3 Ventura # (Auto) (0.0-0.9) th/mm3 Eos # (Auto) (0.0-0.4) th/mm3 Baso # (Auto) (0.0-0.2) th/mm3 WBC Differential Differential Comment PT (9.8-11.6) sec INR Ratio APTT (24.3-30.1) sec Sodium (136-145) meq/L Potassium (3.5-5.1) meq/L Chloride (98-107) meq/L Carbon Dioxide (21.0-32.0) meq/L Anion Gap (5-15) meq/L BUN (7-18) mg/dL Creatinine (0.50-1.00) mg/dL Estimated GFR (>89) mL/min Random Glucose (74-106) mg/dL Calcium (8.5-10.1) mg/dL Magnesium (1.5-2.5) mg/dL Total Bilirubin (0.2-1.0) mg/dL AST (15-37) U/L ALT (10-53) U/L Alkaline Phosphatase (45-117) U/L Total Creatine Kinase (26-192) U/L Troponin I (0.02-0.05) ng/mL B-Natriuretic Peptide 194 H (0-100) pg/mL Total Protein (6.4-8.2) g/dL Albumin (3.4-5.0) g/dL Lipase (73-393) U/L Imaging Data Attestation: I personally reviewed and interpreted this imaging study as follows : Radiologist's impression: Chest X-Ray 10/16/17 08:23 CONCLUSION: Small bilateral pleural effusions with minimal basilar density, probably atelectasis. ECG Data EKG Prior to Arrival: No Attestation: I personally reviewed and interpreted this ECG as follows: Interpretation: EKG at 0817: Afib at 96bpm, qt/qtc: 349/403, no acute changes Discharge Plan Discharge Disposition Patient Disposition: 30 Still Patient Physicians Team ED Provider: Sanaz Strong Primary Care Provider: Samia Lebron Rxs /Orders / Referrals /Forms Prescriptions: No Action albuterol sulfate 2.5 mg /3 mL (0.083 %) Solution For Nebulization 1.25 mg INHALATION QID RF: 0 donepezil 10 mg Tablet 10 mg PO DAILY RF: 0 potassium chloride [K-Tab] 10 mEq Tablet Extended Release 10 meq PO DAILY RF: 0 allopurinol 100 mg Tablet 100 mg PO DAILY RF: 0 aspirin [Aspir-81] 81 mg Tablet,Delayed Release (Dr/Ec) 81 mg PO DAILY RF: 0 meloxicam 7.5 mg Tablet 7.5 mg PO DAILY RF: 0 nitrofurantoin macrocrystal 100 mg Capsule 100 mg PO DAILY RF: 0 metoprolol tartrate 50 mg Tablet 50 mg PO DAILY RF: 0 fluticasone [Flovent HFA] 220 mcg/actuation Hfa Aerosol Inhaler 1 puff INHALATION BID RF: 0 furosemide 20 mg Tablet 20 mg PO DAILY RF: 0 mirtazapine 15 mg Tablet 15 mg PO DAILY RF: 0 albuterol sulfate [Ventolin HFA] 90 mcg/actuation Hfa Aerosol Inhaler 2 puff INHALATION Q4-6H PRN (Reason: Shortness Of Breath) RF: 0 diltiazem HCl [DILT-XR] 180 mg Capsule,Ext.Rel 24h Degradable 180 mg PO DAILY RF: 0 cranberry 500 mg Capsule 1,500 mg PO DAILY RF: 0 cholecalciferol (vitamin D3) [Vitamin D3] 1,000 unit Capsule 1,000 unit PO DAILY RF: 0 memantine 5 mg Tablet 5 mg PO DAILY RF: 0 omega 2-wze-wfb-fish oil [Fish Oil] 1,000 mg (120 mg-180 mg) Capsule 1 cap PO DAILY RF: 0 lactobacillus combination no.4 [Probiotic] 3 billion cell Capsule 3,000 mmu cells PO DAILY RF: 0 umeclidinium-vilanterol [Anoro Ellipta] 62.5-25 mcg/actuation Blister With Device 1 inh INHALATION Q24H RF: 0 Discharge Instructions Patient Printed Instructions: Chest Pain (ED) Discharge Interventions Interventions: Vital Signs Last Done: 10/16/17 10:05 Status ED Status: With Doctor
[2017-10-16 08:59] LABS: Baso % (Auto) 0.3 % (0.0-2.0); Eos # (Auto) 0.1 th/mm3 (0.0-0.4); Eos % (Auto) 1.3 % (0.0-4.0); Hematocrit 45.1 % (35.0-46.0); Hemoglobin 15.6 gm/dL (11.6-15.3); Lymph # (Auto) 1.3 th/mm3 (1.0-4.8); Mean Corpuscular HGB Conc 34.6 % (32.0-36.0); Mean Corpuscular Hemoglobin 35.1 pg (27.0-34.0); Mean Corpuscular Volume 101.5 fL (80.0-100.0); Mean Platelet Volume 8.9 fL (7.0-11.0); Mono # (Auto) 0.8 th/mm3 (0.0-0.9); Neut # (Auto) 8.7 th/mm3 (1.8-7.7); Neut % (Auto) 79.4 % (16.0-70.0); Platelet Count 207 th/mm3 (150-450); Red Blood Count 4.44 mil/mm3 (4.00-5.30); Red Cell Distribution Width 15.5 % (11.6-17.2); White Blood Count 10.9 th/mm3 (4.0-11.0)
[2017-10-16 09:08] LABS: Chloride 101 meq/L (98-107); Sodium 138 meq/L (136-145)
[2017-10-16 09:13] LABS: Activated Partial Thrombo Time 23.6 sec (24.3-30.1); Calcium 8.9 mg/dL (8.5-10.1); Prothrombin Time 9.9 sec (9.8-11.6)
[2017-10-16 09:14] LABS: Albumin 3.5 g/dL (3.4-5.0); Anion Gap 7 meq/L (5-15); Blood Urea Nitrogen 21 mg/dL (7-18); Carbon Dioxide 30.3 meq/L (21.0-32.0); Glucose,Random 88 mg/dL (74-106); Lipase 172 U/L (73-393); Magnesium 1.9 mg/dL (1.5-2.5)
[2017-10-16 09:16] LABS: Alanine Aminotransferase 16 U/L (10-53); Aspartate Aminotransferase 16 U/L (15-37)
[2017-10-16 09:17] LABS: Glomerular Filtration Rate 43 mL/min (>89)
[2017-10-16 09:18] LABS: Total Protein 7.2 g/dL (6.4-8.2)
[2017-10-16 09:19] LABS: Alkaline Phosphatase 163 U/L (45-117)
[2017-10-16 09:43] LABS: Creatine Kinase 39 U/L (26-192)
--- NOTE | 2017-10-16 10:14 | XR ---
EXAM DATE: 10/16/2017 9:55 AM EDT AGE/SEX: 87 years / Female INDICATIONS: Shortness of breath and left sided chest pain. CLINICAL DATA: This is the patient's initial encounter. Patient reports that signs and symptoms have been present for 1 day and indicates a pain score of 7/10. MEDICAL/SURGICAL HISTORY: Hypertension. Chronic obstructive pulmonary disease. Spontaneous pne umothorax five years ago. None. Chest tube for previous pneumo. COMPARISON: [facility], CHEST SINGLE AP, 03/18/2017. . FINDINGS: Small bilateral pleural effusions, right greater than left. Minimal basilar atelectasis. No pneumotho rax. Heart size mildly enlarged. CONCLUSION: Small bilateral pleural effusions with minimal basilar density, probably atelectasis. Electronically signed by: Asaf Garrett MD 10/16/2017 10:13 AM EDT
[2017-10-16] MEDS ORDERED: Non-Formulary Drug (Albuterol Sulfate 2 PUFF) INHALATION PRN (11:19)
[2017-10-16 12:29] LABS: Creatine Kinase 42 U/L (26-192)
[2017-10-16] MEDS ORDERED: Umeclindinium 62.5 MCG/Vilanterol 25 MCG Inhaler INH SCH (13:00)
--- NOTE | 2017-10-16 15:03 | P.HP ---
History of Present Illness Service: [facility] adult med Primary Care Physician: Samia Lebron MD Chief Complaint: sob, cp History of Present Illness: Patient is an 87-year-old female with history of COPD, atrial fibrillation, hypertension who presents to the emergency room with complaints of chest pain and shortness of breath. As per patient's daughter, patient has history of moderate to severe COPD, she is not on oxygen supplement. Patient does follow- up with Dr. Rajan - her counterperson who recommended nebulizer treatments which patient has not been compliant with. Reports that at baseline, patient usually has right-sided chest pain with her COPD symptoms. Daughter was concerned as this morning, patient woke up and began to have chest pain in her left chest. Patient reports that chest pain is located to her left chest, chest pain feels like a "pressure" to her chest with some radiation toward left shoulder. Patient reports shortness of breath as well as diaphoresis with her symptoms. Patient does have history of atrial fibrillation for which she follows with Dr. Azar in the office - daughter reports that patient is supposed to have a Watchman procedure but no one will touch her with her "bad lungs." Reportedly cardiology had wanted her on a novel oral anticoagulant however due to easy bruising and bleeding patient declined such intervention. It is noted that she was initially accepted into the chest pain clinic however after further evaluation it seems that her primary problem is COPD exacerbation with possible underlying secondary angina. She is currently chest pain-free and her breathing is much improved. Her first 2 sets of enzymes have been negative. 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 Noncontributory - Diagnosis (1) COPD exacerbation (2) Chest pain (3) Hypertension (4) Atrial fibrillation Review of Systems Constitutional: Reports malaise, Denies anorexia, Denies body ache(s), Denies chills, Denies daytime sleepiness, Denies excessive sweating, Denies fatigue, Denies fever(s), Denies headache(s), Denies increased appetite, Denies lack of energy, Denies night sweats, Denies weakness, Denies weight gain, Denies weight loss, Denies other Eyes: Reports blurry vision Ears, Nose, Mouth, and Throat: Reports abnormal hearing Cardiovascular: Reports chest pain, Reports chest pain at rest, Reports irregular heart rhythm, Reports shortness of breath, Reports shortness of breath with activity Respiratory: Reports cough, Reports pain with cough, Reports shortness of breath , Reports shortness of breath with activity, Reports wheezing, Denies change in phlegm color, Denies chest congestion, Denies coughing up blood, Denies excessive phlegm production, Denies pain on inspiration, Denies snoring, Denies stridor, Denies other Gastrointestinal: Denies abdominal pain, Denies belching, Denies black, tarry stools, Denies bloating, Denies bright, red blood in stools, Denies change in bowel habits, Denies constant urge to pass stool, Denies change in stools, Denies coffee ground vomit, Denies constipation, Denies cramping, Denies difficulty swallowing, Denies excessive passing of gas, Denies feeling full early, Denies heartburn, Denies incontinent of stools, Denies loose stools, Denies nausea, Denies pain with swallowing, Denies vomiting, Denies vomiting blood, Denies other Musculoskeletal: Reports back pain, Reports loss of height Skin/Breast: Reports hair loss Neurologic: Reports abnormal hearing, Reports abnormal walking Psychiatric: Reports anxiety [facility] - History History Provided By: Family Member - Medical History Medical History: Medical History (Last Updated 10/16/17 @ 14:55 by Maykel Ahn MD, PhD) COPD (chronic obstructive pulmonary disease) (Acute) Atrial fibrillation (Acute) Hypertension (Acute) Atrial flutter Kidney stones - Surgical History Surgical History: Surgical History (Last Reviewed 10/16/17 @ 08:39 by Sanaz Strong) History of hip surgery - Tobacco History Smoking Status: Former smoker Tobacco Type: Cigarettes Packs Per Day: 3 Years Smoked: 30 Smoking End Date: 1983 - Alcohol History How Often Do You Have a Drink Containing Alcohol: 4 or more times a week - Substance Use History Substance History: No History of Abuse - Travel History Recent Travel in the [place] Within the Last 8 Weeks: No Recent Travel Out of the Country Within the Last 8 Weeks: No - Immunization History Tetanus Immunization: Unsure Hx Influenza Vaccine This Season: Yes Medications and Allergies Active Medications: Active Medications Albuterol (Duoneb Neb (Shanti)) 1 ampul NEB Q4HR NEB SHANTI Sodium Chloride (Ns Flush) 2 ml IV.FLUSH BID SHANTI Sodium Chloride (Ns Flush) 2 ml IV.FLUSH PRN PRN PRN Reason: FLUSH AFTER USING IV ACCESS Allergies Allergy/AdvReac Type Severity Reaction Status Date / Time sulfamethoxazole Allergy Unknown Unknown Verified 10/16/17 08:27 trimethoprim Allergy Unknown Unknown Verified 10/16/17 08:27 acetaminophen AdvReac Severe Hypotension Verified 10/16/17 08:27 ciprofloxacin AdvReac Severe Syncope Verified 10/16/17 08:27 doxycycline AdvReac Severe Nausea/Vomi Verified 10/16/17 08:27 ting levofloxacin AdvReac Severe Syncope Verified 10/16/17 08:27 oxycodone AdvReac Severe Hypotension Verified 10/16/17 08:27 Home Medications Medication Instructions Recorded Confirmed Type albuterol sulfate 1.25 mg INHALATION QID 10/16/17 10/16/17 History albuterol sulfate [Ventolin HFA] 2 puff INHALATION Q4-6H PRN 10/16/17 10/16/17 History allopurinol 100 mg PO DAILY 10/16/17 10/16/17 History aspirin [Aspir-81] 81 mg PO DAILY 10/16/17 10/16/17 History cholecalciferol (vitamin D3) 1,000 unit PO DAILY 10/16/17 10/16/17 History [Vitamin D3] cranberry 1,500 mg PO DAILY 10/16/17 10/16/17 History diltiazem HCl [DILT-XR] 180 mg PO DAILY 10/16/17 10/16/17 History donepezil 10 mg PO DAILY 10/16/17 10/16/17 History fluticasone [Flovent HFA] 1 puff INHALATION BID 10/16/17 10/16/17 History furosemide 20 mg PO DAILY 10/16/17 10/16/17 History lactobacillus combination no.4 3,000 mmu cells PO DAILY 10/16/17 10/16/17 History [Probiotic] meloxicam 7.5 mg PO DAILY 10/16/17 10/16/17 History memantine 5 mg PO DAILY 10/16/17 10/16/17 History metoprolol tartrate 50 mg PO DAILY 10/16/17 10/16/17 History mirtazapine 15 mg PO DAILY 10/16/17 10/16/17 History nitrofurantoin macrocrystal 100 mg PO DAILY 10/16/17 10/16/17 History omega 5-kod-spp-fish oil [Fish Oil] 1 cap PO DAILY 10/16/17 10/16/17 History potassium chloride [K-Tab] 10 meq PO DAILY 10/16/17 10/16/17 History umeclidinium-vilanterol [Anoro 1 inh INHALATION Q24H 10/16/17 10/16/17 History Ellipta] Exam Vital signs: Vital Signs 10/16/17 08:15 10/16/17 08:25 10/16/17 08:40 Temperature 98.2 F Pulse Rate 88 88 90 Respiratory Rate 28 H 19 Blood Pressure 154/132 H Pulse Oximetry 97 97 10/16/17 08:50 10/16/17 08:56 10/16/17 09:00 Temperature Pulse Rate 93 H 93 H Respiratory Rate 18 18 Blood Pressure Pulse Oximetry 97 10/16/17 10:00 10/16/17 10:05 10/16/17 12:00 Temperature Pulse Rate 102 H 105 H 106 H Respiratory Rate 18 Blood Pressure 154/105 H Pulse Oximetry 97 97 96 10/16/17 14:13 Temperature 96.8 F L Pulse Rate 94 H Respiratory Rate 18 Blood Pressure 149/88 H Pulse Oximetry 99 Intake & Output 10/15/17 10/16/17 10/16/17 18:59 06:59 18:59 Weight 60 kg Narrative: GENERAL: elderly, frail, hard of hearing SKIN: Warm and dry. 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 Global dermatoheliosis. HEAD: Atraumatic. Normocephalic. EYES: Pupils equal and round. No scleral icterus. No injection or drainage. ENT: No nasal bleeding or discharge. Mucous membranes pink and moist. NECK: Trachea midline. No JVD. CARDIOVASCULAR: Irregularly irregular, distant heart sounds, no significant murmur appreciated. RESPIRATORY: No accessory muscle use. Occasional expiratory wheeze. No fine crackles. Breath sounds equal bilaterally. GASTROINTESTINAL: Abdomen soft, non-tender, nondistended. Hepatic and splenic margins not palpable. MUSCULOSKELETAL: Extremities without clubbing, cyanosis. trace to 1+ edema in distal LE. No obvious deformities. NEUROLOGICAL: Awake and alert. No obvious cranial nerve deficits. Motor grossly within normal limits. Five out of 5 muscle strength in the arms and legs. Normal speech. PSYCHIATRIC: Appropriate mood and affect; insight and judgment normal. Results - Labs CBC & Chem 7: 10/16/17 08:30 10/16/17 08:30 Labs: Laboratory Results - last 24 hr 10/16/17 10/16/17 10/16/17 08:30 08:30 08:30 CBC w Diff Auto diff final WBC 10.9 RBC 4.44 Hgb 15.6 H Hct 45.1 MCV 101.5 H MCH 35.1 H MCHC 34.6 RDW 15.5 Plt Count 207 MPV 8.9 Neut % (Auto) 79.4 H Lymph % (Auto) 12.0 [place] % (Auto) 7.0 Eos % (Auto) 1.3 Baso % (Auto) 0.3 Neut # (Auto) 8.7 H Lymph # (Auto) 1.3 [place] # (Auto) 0.8 Eos # (Auto) 0.1 Baso # (Auto) 0.0 WBC Differential . Differential Comment . PT 9.9 INR 1.0 APTT 23.6 L Sodium 138 Potassium 4.0 Chloride 101 Carbon Dioxide 30.3 Anion Gap 7 BUN 21 H Creatinine 1.20 H Estimated GFR 43 L Random Glucose 88 Calcium 8.9 Magnesium 1.9 Total Bilirubin 0.9 AST 16 ALT 16 Alkaline Phosphatase 163 H Total Creatine Kinase 39 Troponin I Less than 0.02 L B-Natriuretic Peptide Total Protein 7.2 Albumin 3.5 Lipase 172 10/16/17 10/16/17 08:30 12:00 CBC w Diff WBC RBC Hgb Hct MCV MCH MCHC RDW Plt Count MPV Neut % (Auto) Lymph % (Auto) [place] % (Auto) Eos % (Auto) Baso % (Auto) Neut # (Auto) Lymph # (Auto) [place] # (Auto) Eos # (Auto) Baso # (Auto) WBC Differential Differential Comment PT INR APTT Sodium Potassium Chloride Carbon Dioxide Anion Gap BUN Creatinine Estimated GFR Random Glucose Calcium Magnesium Total Bilirubin AST ALT Alkaline Phosphatase Total Creatine Kinase 42 Troponin I Less than 0.02 L B-Natriuretic Peptide 194 H Total Protein Albumin Lipase - Imaging Impressions Chest X-Ray 10/16/17 08:23 CONCLUSION: Small bilateral pleural effusions with minimal basilar density, probably atelectasis. Caprini VTE Risk Assessment Caprini VTE Risk Assessment: Moderate/High Risk (score >= 2) Caprini Risk Assessment Model: Point Value = 1 Point Value = 2 Point Value = 3 Point Value = 5 Age 41-60 Minor surgery BMI > 25 kg/m2 Swollen legs Varicose veins or History of unexplained or recurrent spontaneous Oral contraceptives or hormone replacement Sepsis (< 1 month) Serious lung disease, including pneumonia (< 1 month) Abnormal pulmonary function Acute myocardial infarction Congestive heart failure (< 1 month) History of inflammatory bowel disease Medical patient at bed rest Age 61-74 Arthroscopic surgery Major open surgery (> 45 min) Laparoscopic surgery (> 45 min) Malignancy Confined to bed (> 72 hours) Immobilizing plaster cast Central venous access Age >= 75 History of VTE Family history of VTE Factor V Leiden Prothrombin [id number] Lupus anticoagulant Anticardiolipin antibodies Elevated serum homocysteine Heparin-induced thrombocytopenia Other congenital or acquired thrombophilia Stroke (< 1 month) Elective arthroplasty Hip, pelvis, or leg fracture Acute spinal cord injury (< 1 month) Prophylaxis Regimen: Total Risk Factor Score Risk Level Prophylaxis Regimen 0-1 Low Early ambulation 2 Moderate Order ONE of the following: *Sequential Compression Device (SCD) *Heparin 5000 units SQ BID 3-4 Higher Order ONE of the following medications: *Heparin 5000 units SQ TID *Enoxaparin/Lovenox 40 mg SQ daily (WT < 150 kg, CrCl > 30 mL/min) *Enoxaparin/Lovenox 30 mg SQ daily (WT < 150 kg, CrCl > 10-29 mL/min) *Enoxaparin/Lovenox 30 mg SQ BID (WT < 150 kg, CrCl > 30 mL/min) AND/OR *Sequential Compression Device (SCD) 5 or more Highest Order ONE of the following medications: *Heparin 5000 units SQ TID (Preferred with Epidurals) *Enoxaparin/Lovenox 40 mg SQ daily (WT < 150 kg, CrCl > 30 mL/min) *Enoxaparin/Lovenox 30 mg SQ daily (WT < 150 kg, CrCl > 10-29 mL/min) *Enoxaparin/Lovenox 30 mg SQ BID (WT < 150 kg, CrCl > 30 mL/min) AND *Sequential Compression Device (SCD) Assessment and Plan - Assessment (1) COPD exacerbation Code(s): J44.1 - Chronic obstructive pulmonary disease with (acute) exacerbation Status: Acute Plan: Provide nebulizer, steroids, supplemental oxygen. (2) Chest pain Code(s): R07.9 - Chest pain, unspecified Status: Acute Plan: Continue rule out protocol. Likely perform nuclear stress test if enzymes and EKGs remain negative. Patient has underlying risk factors. (3) Hypertension Code(s): I10 - Essential (primary) hypertension Status: Chronic Plan: Poorly controlled at present. Resume medication. Follow closely. (4) Atrial fibrillation Code(s): I48.91 - Unspecified atrial fibrillation Status: Acute Plan: rate controlled. continue rx. Holding off on NOAC per d/w family/pt. 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 - Plan Discussed Condition With: Pt, her daughter, ER provider (2) Chest pain Qualifiers: Chest pain type: other chest pain Qualified Code(s): R07.89 - Other chest pain; R07.8 - Other chest pain (3) Hypertension Qualifiers: Hypertension type: essential hypertension Qualified Code(s): I10 - Essential (primary) hypertension (4) Atrial fibrillation Qualifiers: Atrial fibrillation type: chronic Qualified Code(s): I48.2 - Chronic atrial fibrillation
[2017-10-16 15:54] LABS: Creatine Kinase 52 U/L (26-192)
[2017-10-16] MEDS: dilTIAZem CD 180 MG Capsule PO SCH (17:33)
[2017-10-16] MEDS ORDERED: Mirtazapine 15 MG Tablet PO SCH (21:00)
[2017-10-16] MEDS: MethylPREDNISolone Sod Succinate Inj 40 MG/ML Vial IV.PUSH SCH (22:12)
[2017-10-16] MEDS: Metoprolol Tartrate 50 MG Tablet PO SCH (22:15)
[2017-10-17 03:41] VITALS: RESP 20
[2017-10-17 07:59] LABS: Potassium 4.1 meq/L (3.5-5.1)
[2017-10-17 08:06] LABS: Calcium 8.7 mg/dL (8.5-10.1)
[2017-10-17 08:15] LABS: Carbon Dioxide 24.7 meq/L (21.0-32.0)
--- NOTE | 2017-10-17 08:39 | ECG ---
Date Performed: 10/16/2017 Time Performed: 15:44:26 PTAGE: 87 years EKG: ATRIAL FLUTTER/TACHYCARDIA WITH RAPID VENTRICULAR RESPONSE LOW QRS VOLTAGE IN EXTREMITY DIANNA DS POSSIBLE ANTERIOR MYOCARDIAL INFARCTION ABNORMAL RHYTHM ECG PREVIOUS TRACING : 10/16/2017 08.17 DOCTOR: Mann Almonte Interpretating Date/Time 10/17/2017 08:37:51
[2017-10-17] MEDS ORDERED: Furosemide 20 MG Tablet PO SCH ×2 (09:00)
[2017-10-17] MEDS ORDERED: DILTIAZEM HCL 180 MG PO SCH (09:00)
[2017-10-17] MEDS ORDERED: Non-Formulary Drug (Nitrofurantoin Macrocrystal [Nitrofurantoin Macrocrystal] 100 MG) PO SCH (09:00)
[2017-10-17] MEDS ORDERED: Mirtazapine 15 MG Tablet PO SCH (09:00)
[2017-10-17] MEDS ORDERED: Potassium Chloride 10 MEQ ER Capsule PO SCH (09:00)
[2017-10-17] MEDS ORDERED: Metoprolol Tartrate 50 MG Tablet PO SCH (09:00)
[2017-10-17] MEDS ORDERED: Allopurinol 100 MG Tablet PO SCH ×2 (09:00)
[2017-10-17] MEDS ORDERED: Meloxicam 7.5 MG Tablet PO SCH (09:00)
[2017-10-17] MEDS ORDERED: Non-Formulary Drug (Donepezil [Donepezil] 10 MG) PO SCH (09:00)
[2017-10-17] MEDS ORDERED: Non-Formulary Drug (Cholecalciferol (Vitamin D3) [Vitamin D3] 1,000 UNIT) PO SCH (09:00)
[2017-10-17] MEDS: dilTIAZem CD 180 MG Capsule PO SCH (09:07)
[2017-10-17] MEDS: Metoprolol Tartrate 50 MG Tablet PO SCH (09:08)
--- NOTE | 2017-10-17 09:26 | ECG ---
Date Performed: 10/16/2017 Time Performed: 08:17:48 PTAGE: 87 years EKG: ATRIAL FIBRILLATION LOW QRS VOLTAGE IN EXTREMITY LEADS ABNORMAL RHYTHM ECG INTERPRETATION B ASED ON A DEFAULT AGE OF 40 YEARS NO PREVIOUS TRACING DOCTOR: Mann Almonte Interpretating Date/Time 10/17/2017 09:26:08
--- NOTE | 2017-10-17 10:38 | P.PN ---
Subjective Interval history: Patient is an 87-year-old female with history of COPD, atrial fibrillation, hypertension who presents to the emergency room with complaints of chest pain and shortness of breath. As per patient's daughter, patient has history of moderate to severe COPD, she is not on oxygen supplement. Patient does follow- up with Dr. Rajan - her tier and detonator who recommended nebulizer treatments which patient has not been compliant with. Reports that at baseline, patient usually has right-sided chest pain with her COPD symptoms. Daughter was concerned as this morning, patient woke up and began to have chest pain in her left chest. Patient reports that chest pain is located to her left chest, chest pain feels like a "pressure" to her chest with some radiation toward left shoulder. Patient reports shortness of breath as well as diaphoresis with her symptoms. Patient does have history of atrial fibrillation for which she follows with Dr. Azar in the office - daughter reports that patient is supposed to have a Watchman procedure but no one will touch her with her "bad lungs." Reportedly cardiology had wanted her on a novel oral anticoagulant however due to easy bruising and bleeding patient declined such intervention. It is noted that she was initially accepted into the chest pain clinic however after further evaluation it seems that her primary problem is COPD exacerbation with possible underlying secondary angina. She is currently chest pain-free and her breathing is much improved. Her first 2 sets of enzymes have been negative. This am patient breathing normal ,and has had no chest pain ,is scheduled for lexiscan today if good will discharge patient today with follow up to pcp,labs and ekg unremarkable. Patient did have elevated glucose which can be followed up as out patient as well as cardiac follow up. Physical Exam Vital signs: Vital Signs 10/16/17 12:00 10/16/17 14:13 10/16/17 15:03 Temperature 96.8 F L Pulse Rate 106 H 94 H 105 H Respiratory Rate 18 19 Blood Pressure 149/88 H Pulse Oximetry 96 99 10/16/17 15:11 10/16/17 16:00 10/16/17 19:27 Temperature 97.9 F Pulse Rate 73 115 H Respiratory Rate 18 20 Blood Pressure 145/92 H Pulse Oximetry 98 97 94 L 10/16/17 20:00 10/17/17 00:00 10/17/17 03:40 Temperature 96.9 F L 96.8 F L Pulse Rate 117 H 115 H 93 H Respiratory Rate 18 18 20 Blood Pressure 98/60 L 118/64 Pulse Oximetry 96 94 L 10/17/17 07:47 10/17/17 08:06 Temperature 97 F L Pulse Rate 96 H 96 H Respiratory Rate 20 20 Blood Pressure 122/82 Pulse Oximetry 94 L 95 Intake & Output 10/16/17 10/17/17 10/17/17 18:59 06:59 18:59 Intake Total 300 / 300 0 / 0 Balance 300 / 300 0 / 0 Weight 60 kg 60.3 kg Intake: Oral 300 / 300 0 / 0 Other: # Voids 2 2 Narrative: GENERAL: SKIN: Warm and dry. HEAD: Normocephalic. EYES: No scleral icterus. No injection or drainage. NECK: Supple, trachea midline. No JVD or lymphadenopathy. CARDIOVASCULAR: Regular rate and rhythm without murmurs, gallops, or rubs. RESPIRATORY: Breath sounds equal bilaterally. No accessory muscle use. GASTROINTESTINAL: Abdomen soft, non-tender, nondistended. MUSCULOSKELETAL: No cyanosis, or edema. BACK: Nontender without obvious deformity. No CVA tenderness. Results - Labs CBC & Chem 7: 10/16/17 08:30 10/17/17 07:03 Laboratory Results - last 24 hr 10/16/17 10/16/17 10/17/17 12:00 15:15 07:03 Sodium 139 Potassium 4.1 Chloride 104 Carbon Dioxide 24.7 Anion Gap 10 BUN 29 H Creatinine 1.20 H Estimated GFR 43 L Random Glucose 189 H D Calcium 8.7 Total Creatine Kinase 42 52 Troponin I Less than 0.02 L Less than 0.02 L Assessment and Plan - Assessment (1) COPD exacerbation Code(s): J44.1 - Chronic obstructive pulmonary disease with (acute) exacerbation Status: Acute Plan: Provide nebulizer, steroids, supplemental oxygen. Did well probable discharge later today ,short coarse steroids as out patient (2) Chest pain Code(s): R07.9 - Chest pain, unspecified Status: Acute Plan: Continue rule out protocol. Likely perform nuclear stress test if enzymes and EKGs remain negative. Patient has underlying risk factors. Stress test today (3) Hypertension Code(s): I10 - Essential (primary) hypertension Status: Chronic Plan: Poorly controlled at present. Resume medication. Follow closely. (4) Atrial fibrillation Code(s): I48.91 - Unspecified atrial fibrillation Status: Acute Plan: rate controlled. continue rx. Holding off on NOAC per d/w family/pt. She will f/ u outpt with her player services representative. - Plan discharge possible later today (2) Chest pain Qualifiers: Chest pain type: other chest pain Qualified Code(s): R07.89 - Other chest pain; R07.8 - Other chest pain (3) Hypertension Qualifiers: Hypertension type: essential hypertension Qualified Code(s): I10 - Essential (primary) hypertension (4) Atrial fibrillation Qualifiers: Atrial fibrillation type: chronic Qualified Code(s): I48.2 - Chronic atrial fibrillation
[2017-10-17] MEDS ORDERED: predniSONE 20 MG Tablet PO SCH (11:00)
[2017-10-17] MEDS ORDERED: Regadenoson Inj 0.4 MG/5 ML Syringe IV.PUSH ONE (11:45)
[2017-10-17] MEDS: MethylPREDNISolone Sod Succinate Inj 40 MG/ML Vial IV.PUSH SCH (11:51)
--- NOTE | 2017-10-17 12:36 | NM ---
EXAM DATE: 10/17/2017 12:27 PM EDT AGE/SEX: 87 years / Female INDICATIONS:Angina. Atrial fibrillation Substernal chest pain with dyspnea. CLINICAL DATA: This is the patient's initial encounter. Patient reports that signs and symptoms have been present for 1 day and indicates a pain score of 4/10. MEDICAL/SURGICAL HISTORY: Hypertension. Chronic obstructive pulmonary disease. . Hip surgery. COMPARISON: No prior exams available for comparison. DOSE: 8.8 mCi Tc 99m Myoview at rest 26.3 mCi [id number] at stress 0.4 mg Lexiscan STRESS SYMPTOMS: None noted. EJECTION FRACTION: > 70 % TECHNIQUE: The patient underwent pharmacologic stress with infusion of prescribed dose. Continuous ECG tracing was monitored during stress. Gated SPECT imaging was performed after stress and conventi onal SPECT imaging was performed at rest. The examination was performed on a SPECT/CT scanner, both attenuation and non-corrected datasets were reviewed. FINDINGS: Distribution: The maximum perfused segment at stress is in the anterolateral wall. Perfusion Study: The pattern of perfusion at stress is within normal limits. Gated Study: There are intact wall motion and wall thickening without hypokinetic or dyskinetic segm ents. The ejection fraction is calculated at > 70%. RISK CATEGORY: Low (<1% Annual Motality Rate) CONCLUSION: 1. No reversible perfusion defects to suggest ischemia. 2. Normal ejection fraction. Electronically signed by: Rikki Ortega MD 10/17/2017 12:34 PM EDT
--- NOTE | 2017-10-17 12:58 | TR ---
Date Performed: 10/17/2017 Time Performed: 11:31:33 DOCTOR: Paulino Nobles DRUG LIST: CLINICAL HISTORY: REASON FOR TEST: Chest pain REASON FOR ENDING: OBSERVATION: CONCLUSION: Lexiscan stress test was performed under standard four minute protocol. Radionuclide was injected one minute prior to ending the test. No electrocardiographic abormalities were present to suggest ischemia. Nuclear imaging and interpretation are pending. COMMENTS:
[2017-10-17 15:04] VITALS: BP 128/74; PULSE 82; TEMP 96.5; O2SAT 98
--- NOTE | 2017-10-17 15:22 | P.DS ---
Date of admission: 10/16/17 10:50 Primary care physician: Samia Lebron MD Attending physician on discharge: Emmanuel Grace Anticipated date of discharge: 10/17/17 Brief History from admission: Patient is an 87-year-old female with history of COPD, atrial fibrillation, hypertension who presents to the emergency room with complaints of chest pain and shortness of breath. As per patient's daughter, patient has history of moderate to severe COPD, she is not on oxygen supplement. Patient does follow- up with Dr. Rajan - her housekeeping/laundry supervisor who recommended nebulizer treatments which patient has not been compliant with. Reports that at baseline, patient usually has right-sided chest pain with her COPD symptoms. Daughter was concerned as this morning, patient woke up and began to have chest pain in her left chest. Patient reports that chest pain is located to her left chest, chest pain feels like a "pressure" to her chest with some radiation toward left shoulder. Patient reports shortness of breath as well as diaphoresis with her symptoms. Patient does have history of atrial fibrillation for which she follows with Dr. Azar in the office - daughter reports that patient is supposed to have a Watchman procedure but no one will touch her with her "bad lungs." Reportedly cardiology had wanted her on a novel oral anticoagulant however due to easy bruising and bleeding patient declined such intervention. It is noted that she was initially accepted into the chest pain clinic however after further evaluation it seems that her primary problem is COPD exacerbation with possible underlying secondary angina. She is currently chest pain-free and her breathing is much improved. Her first 2 sets of enzymes have been negative. 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 SOB and chest pain resolved and patient discharged will stop IV solumedrol and have put in to CP pharnmacy 20mg daily for 5 days. To follow up with PCP - Time Spent with Patient Total time spent providing and/or coordinating discharge services: Greater than 30 minutes - Quality: VTE Deep Vein Thrombosis/Pulmonary Embolism Present on Admission: No Exam Vital signs: Vital Signs 10/16/17 16:00 10/16/17 19:27 10/16/17 20:00 Temperature 97.9 F 96.9 F L Pulse Rate 73 115 H 117 H Respiratory Rate 18 20 18 Blood Pressure 145/92 H 98/60 L Pulse Oximetry 97 94 L 96 10/17/17 00:00 10/17/17 03:40 10/17/17 07:47 Temperature 96.8 F L Pulse Rate 115 H 93 H 96 H Respiratory Rate 18 20 20 Blood Pressure 118/64 Pulse Oximetry 94 L 94 L 10/17/17 08:06 10/17/17 10:40 10/17/17 11:26 Temperature 97 F L 96.1 F L Pulse Rate 96 H 81 Respiratory Rate 20 20 Blood Pressure 122/82 131/76 Pulse Oximetry 95 94 L 96 10/17/17 13:01 10/17/17 15:03 Temperature 96.5 F L Pulse Rate 100 H 82 Respiratory Rate 20 20 Blood Pressure 128/74 Pulse Oximetry 98 Intake & Output 10/16/17 10/17/17 10/17/17 18:59 06:59 18:59 Intake Total 300 / 300 0 / 0 Balance 300 / 300 0 / 0 Weight 60 kg 60.3 kg Intake: Oral 300 / 300 0 / 0 Other: # Voids 2 2 Results Procedures completed during hospitalization: lexascan Labs on day of discharge: Labs from last 24 hours 10/17/17 10/16/17 07:03 15:15 Sodium 139 Potassium 4.1 Chloride 104 Carbon Dioxide 24.7 Anion Gap 10 BUN 29 H Creatinine 1.20 H Estimated GFR 43 L Random Glucose 189 H D Calcium 8.7 Total Creatine Kinase 52 Troponin I Less than 0.02 L - Impressions ITS Impressions Chest X-Ray 10/16/17 08:23 CONCLUSION: Small bilateral pleural effusions with minimal basilar density, probably atelectasis. Myocardial Perfusion Scan Nuc Med 10/17/17 00:00 CONCLUSION: 1. No reversible perfusion defects to suggest ischemia. 2. Normal ejection fraction. Discharge Plan - Discharge Disposition Patient Disposition: 01 Discharge Home - Discharge Condition Condition: Good - Discharge Order Discharge Orders: Discharge Order (Routine); Ordered 10/17/17 Ordered By: Emmanuel Grace - Discharge Details Anticipated Discharge Date: 10/17/17 - Physicians Team Primary Care Provider: Samia Lebron Attending Provider: Maykel Ahn
== END 2017-10-17 16:59 | disposition home or self-care (01) ==
LOC: PH3 08:12 → PHED 08:12 → PHEDA 08:12 → PH3 12:45
PROVIDERS: ADMIT Family Medicine; ATTEND Family Medicine